=== PATIENT | male | born 1955 | race Two or more races ===

== ENCOUNTER 2018-11-28 09:59 | Inpatient (IN) | payer MEDICAID, OTHER ==
[~2018-11-28] VITALS: Ht 160 cm; Wt 78.0 kg
[2018-11-28] VITALS (20 sets, daily range): BP systolic 99–136; BP diastolic 55–93
[2018-11-28] MEDS ORDERED: SODIUM CHLORIDE 0.9% 1,000 ML IV ONE (10:23)
[2018-11-28 11:00] LABS: HEMATOCRIT. 45.2 % (42.0-52.0); HEMOGLOBIN. 14.4 g/dL (14.0-18.0); MEAN CORPUSCULAR HEMOGLOBIN 30.2 pg (28.0-32.0); MEAN PLATELET VOLUME 10.6 fl (7.4-10.4); PLATELET 387 x1000/uL (130-400); RED BLOOD CELL COUNT 4.76 mill/uL (4.7-6.1)
[2018-11-28 11:06] LABS: CHLORIDE 101 mEq/L (98-107)
[2018-11-28 11:10] LABS: ETHANOL BLOOD < 10 mg/dL
[2018-11-28 11:18] LABS: CANNABINOID URINE SCREEN NEGATIVE (NEGATIVE)
[2018-11-28 11:19] LABS: *AMPHETAMINES SCREEN URINE NEGATIVE (NEGATIVE)
[2018-11-28 11:20] LABS: *BENZODIAZEPINES SCREEN URINE NEGATIVE (NEGATIVE); METHADONE URINE SCREEN NEGATIVE (NEGATIVE)
[2018-11-28 11:21] LABS: *BARBITURATES SCREEN URINE NEGATIVE (NEGATIVE); OPIATES URINE SCREEN NEGATIVE (NEGATIVE)
[2018-11-28 11:22] LABS: PHENCYCLIDINE URINE SCREEN NEGATIVE (NEGATIVE)
[2018-11-28 11:24] LABS: *COCAINE SCREEN URINE NEGATIVE (NEGATIVE)
[2018-11-28] MEDS ORDERED: INSULIN REGULAR (HUMULIN R) 300UNITS/3ML SUBCUT ONE (11:30)
[2018-11-28 11:35] LABS: PLATELET ESTIMATE NORMAL
[2018-11-28] MEDS ORDERED: FUROSEMIDE 100MG/10ML VIAL IV STA (11:48)
[2018-11-28] MEDS ORDERED: SODIUM BICARBONATE 8.4% 1 MEQ/ML 50ML SYR IV ONE (12:00)
[2018-11-28] MEDS ORDERED: ALBUTEROL (0.083%) 2.5MG/3ML NEB HHN ONE (12:00)
[2018-11-28] MEDS ORDERED: INSULIN REGULAR (HUMULIN R) 300UNITS/3ML IV ONE (12:00)
[2018-11-28] MEDS ORDERED: IOHEXOL-350 100 ML BOTTLE ONE (12:20)
[2018-11-28] MEDS ORDERED: INSULIN REGULAR (DRIP) 100 UNITS in SODIUM CHLORIDE 0.9% 99 ML IV SCH (12:30)
[2018-11-28] MEDS ORDERED: LEVETIRACETAM 1000MG/100ML 100 ML IV ONE (12:45)
[2018-11-28 12:59] LABS: BG BASE EXCESS -12.9 mmol/L (-2.0-2.0); BG CARBOXYHEMOGLOBIN 0.3 % (0.5-1.5); BG DEOXYHEMOGLOBIN 2.6 % (0.0-5.0); BG FRACTION INSPIRED OXYGEN 21; BG HCO3 ACT 12.5 mmol/L (22.0-26.0); BG METHEMOGLOBIN 0.2 % (0.0-1.5); BG OXYGEN SATURATION 97.4 % (92.0-98.5); BG OXYHEMOGLOBIN 96.9 % (94.0-97.0); BG PCO2 28.3 mmHg (35.0-45.0); BG PH 7.263 (7.350-7.450); BG PO2 114.2 mmHg (75.0-100.0); BG SAMPLE SITE LEFT FEMORAL; BG TOTAL HEMOGLOBIN 13.9 g/dL (12.0-18.0); BG VENT MODE ROOM AIR
[2018-11-28] MEDS ORDERED: NICARDIPINE 100 MG in SODIUM CHLORIDE 0.9% 60 ML IV PRN (13:00)
[2018-11-28] MEDS: NICARDIPINE 100 MG in SODIUM CHLORIDE 0.9% 60 ML IV PRN ×2 (13:55→22:47)
[2018-11-28] MEDS ORDERED: ONDANSETRON HCL 4MG/2ML INJ IV PRN (15:00)
[2018-11-28] MEDS ORDERED: LEVETIRACETAM 500MG PREMIX 100 ML IV SCH (17:00)
[2018-11-28] MEDS ORDERED: SODIUM CHLORIDE 0.45% 1,000 ML IV SCH (17:00)
[2018-11-28 17:54] LABS: PHOSPHORUS 1.3 mg/dL (2.5-4.9)
[2018-11-28] MEDS ORDERED: DEXTROSE 50% WATER 50ML SYRINGE IV PRN ×2 (18:30)
[2018-11-28] MEDS ORDERED: INSULIN REGULAR (DRIP) 100 UNITS in SODIUM CHLORIDE 0.9% 100 ML IV SCH (19:00)
[2018-11-28 19:07] LABS: CLARITY URINE CLOUDY (CLEAR); COLOR URINE YELLOW (YELLOW); KETONES URINE TRACE (NEGATIVE); LEUKOCYTE ESTERASE URINE NEGATIVE (NEGATIVE); NITRITE URINE NEGATIVE (NEGATIVE); OCCULT BLOOD URINE 3+ (NEGATIVE); PROTEIN URINE 2+ (NEGATIVE); SPECIFIC GRAVITY URINE 1.061 (1.005-1.030); UROBILINOGEN URINE 0.2 E.U./dL (0.2-1.0)
[2018-11-28] MEDS: BLOOD SUGAR DIAGNOSTIC STRIP TEST SCH ×4 (20:16→23:23)
[2018-11-28] MEDS: FAMOTIDINE 20MG/2ML VIAL IV SCH (20:21)
[2018-11-28] MEDS: LEVETIRACETAM 500MG in SODIUM CHLORIDE 0.9% 100ML IV SCH (20:22)
[2018-11-28] MEDS ORDERED: POTASSIUM PHOS,M-BASIC-D-BASIC 15 MMOL in DEXT 5% WATER 245 ML IV NR (22:00)
[2018-11-29] VITALS (93 sets, daily range): BP systolic 82–157; BP diastolic 49–86
[2018-11-29] MEDS: BLOOD SUGAR DIAGNOSTIC STRIP TEST SCH ×11 (00:12→23:28)
[2018-11-29 05:42] LABS: HEMATOCRIT. 43.5 % (42.0-52.0); HEMOGLOBIN. 14.7 g/dL (14.0-18.0); MEAN CORPUSCULAR HEMOGLOBIN 29.5 pg (28.0-32.0); RED CELL DISTRIBUTION WIDTH 13.1 % (11.6-14.6)
[2018-11-29 05:51] LABS: PHOSPHORUS 1.1 mg/dL (2.5-4.9)
[2018-11-29] MEDS ORDERED: DEXTROSE 50% WATER 50ML SYRINGE IV PRN (08:00)
[2018-11-29] MEDS: NICARDIPINE 100 MG in SODIUM CHLORIDE 0.9% 60 ML IV PRN ×2 (08:34→23:29)
[2018-11-29] MEDS: DEXTROSE 5% WATER 1,000 ML IV SCH (08:39)
[2018-11-29 08:52] LABS: BG BASE EXCESS 3.3 mmol/L (-2.0-2.0); BG CARBOXYHEMOGLOBIN 0.4 % (0.5-1.5); BG DEOXYHEMOGLOBIN 4.9 % (0.0-5.0); BG HCO3 ACT 26.9 mmol/L (22.0-26.0); BG METHEMOGLOBIN 0.7 % (0.0-1.5); BG PCO2 37.4 mmHg (35.0-45.0); BG PH 7.474 (7.350-7.450); BG PO2 76.7 mmHg (75.0-100.0); BG SAMPLE SITE RIGHT BRACHIAL; BG TOTAL HEMOGLOBIN 15.1 g/dL (12.0-18.0); BG VENT MODE ROOM AIR
[2018-11-29] MEDS ORDERED: POTASSIUM PHOS,M-BASIC-D-BASIC 15 MMOL in DEXT 5% WATER 245 ML IV SCH (09:00)
[2018-11-29] MEDS ORDERED: HYDRALAZINE 20MG/ML VIAL IV PRN (09:00)
[2018-11-29] MEDS: LEVETIRACETAM 500MG in SODIUM CHLORIDE 0.9% 100ML IV SCH ×2 (09:42→20:21)
[2018-11-29] MEDS ORDERED: INSULIN GLARGINE UD 100 UNITS/ML SYR SUBCUT SCH ×2 (10:00→21:00)
[2018-11-29 10:05] LABS: MEAN PLATELET VOLUME 9.7 fl (7.4-10.4); PLATELET 369 x1000/uL (130-400); PLATELET ESTIMATE NORMAL
[2018-11-29] MEDS ORDERED: PIPERACILLIN/TAZ 3.375G PREMIX 50 ML IV SCH (11:15)
[2018-11-29] MEDS: INSULIN LISPRO 100 UNITS/ML SUBCUT SCH ×3 (12:07→23:36)
[2018-11-29] MEDS: PIPERACILLIN/TAZ 2.25G PREMIX 50 ML IV SCH ×3 (12:41→23:21)
[2018-11-29] MEDS ORDERED: VANCOMYCIN 1500MG in DEXTROSE 5% WATER 250ML IV SCH (13:30)
[2018-11-29 16:37] LABS: PHOSPHORUS 3.4 mg/dL (2.5-4.9)
[2018-11-29] MEDS ORDERED: INSULIN LISPRO 100 UNITS/ML SUBCUT NR ×2 (18:15→19:45)
[2018-11-29] MEDS ORDERED: INSULIN GLARGINE UD 100 UNITS/ML SYR SUBCUT NR (18:30)
[2018-11-29] MEDS: FAMOTIDINE 20MG/2ML VIAL IV SCH (20:20)
[2018-11-30] VITALS (93 sets, daily range): BP systolic 101–158; BP diastolic 38–92
[2018-11-30] MEDS: DEXTROSE 5% WATER 1,000 ML IV SCH ×2 (01:10→17:12)
[2018-11-30 06:09] LABS: HEMATOCRIT. 39.7 % (42.0-52.0); HEMOGLOBIN. 13.4 g/dL (14.0-18.0); MEAN CORPUSCULAR HEMOGLOBIN 29.9 pg (28.0-32.0); MEAN CORPUSCULAR VOLUME 88.5 fL (80.0-94.0); MEAN PLATELET VOLUME 9.8 fl (7.4-10.4); PLATELET 285 x1000/uL (130-400); RED BLOOD CELL COUNT 4.48 mill/uL (4.7-6.1); RED CELL DISTRIBUTION WIDTH 13.7 % (11.6-14.6)
[2018-11-30] MEDS: PIPERACILLIN/TAZ 2.25G PREMIX 50 ML IV SCH ×4 (06:22→23:23)
[2018-11-30 06:23] LABS: PHOSPHORUS 3.1 mg/dL (2.5-4.9)
[2018-11-30] MEDS: INSULIN LISPRO 100 UNITS/ML SUBCUT SCH ×6 (06:23→23:23)
[2018-11-30] MEDS: BLOOD SUGAR DIAGNOSTIC STRIP TEST SCH ×3 (06:24→17:14)
[2018-11-30] MEDS ORDERED: INSULIN LISPRO 100 UNITS/ML SUBCUT SCH (06:30)
[2018-11-30] MEDS: NICARDIPINE 100 MG in SODIUM CHLORIDE 0.9% 60 ML IV PRN (07:54)
[2018-11-30] MEDS: LEVETIRACETAM 500MG in SODIUM CHLORIDE 0.9% 100ML IV SCH ×2 (09:09→20:51)
[2018-11-30] MEDS ORDERED: INSULIN GLARGINE UD 100 UNITS/ML SYR SUBCUT SCH (10:00)
[2018-11-30 10:35] LABS: PLATELET ESTIMATE NORMAL
[2018-11-30] MEDS: INSULIN GLARGINE UD 100 UNITS/ML SYR SUBCUT SCH ×2 (11:46→21:01)
[2018-11-30] MEDS ORDERED: IPRATROPIUM/ALBUTEROL 0.5-3(2.5)MG/3ML NEB HHN PRN (15:00)
[2018-11-30] MEDS ORDERED: CLONIDINE 0.1MG TABLET PO PRN (16:15)
[2018-11-30] MEDS: METOPROLOL TARTRATE 50MG TABLET PO SCH (20:50)
[2018-11-30] MEDS: FAMOTIDINE 20MG/2ML VIAL IV SCH (20:50)
[2018-12-01] VITALS (80 sets, daily range): BP systolic 100–155; BP diastolic 51–110
[2018-12-01] MEDS: INSULIN LISPRO 100 UNITS/ML SUBCUT SCH ×6 (05:55→18:50)
[2018-12-01] MEDS: PIPERACILLIN/TAZ 2.25G PREMIX 50 ML IV SCH ×3 (05:57→18:48)
[2018-12-01] MEDS: BLOOD SUGAR DIAGNOSTIC STRIP TEST SCH ×4 (06:00→18:48)
[2018-12-01 06:09] LABS: HEMATOCRIT. 40.8 % (42.0-52.0); HEMOGLOBIN. 13.7 g/dL (14.0-18.0); MEAN CORPUSCULAR HEMOGLOBIN 29.7 pg (28.0-32.0); MEAN CORPUSCULAR VOLUME 88.2 fL (80.0-94.0); MEAN PLATELET VOLUME 9.6 fl (7.4-10.4); PLATELET 212 x1000/uL (130-400); RED BLOOD CELL COUNT 4.63 mill/uL (4.7-6.1); RED CELL DISTRIBUTION WIDTH 13.2 % (11.6-14.6)
[2018-12-01 06:18] LABS: PHOSPHORUS 4.6 mg/dL (2.5-4.9)
[2018-12-01] MEDS: METOPROLOL TARTRATE 50MG TABLET PO SCH ×2 (08:28→21:29)
[2018-12-01] MEDS: LEVETIRACETAM 500MG in SODIUM CHLORIDE 0.9% 100ML IV SCH ×2 (08:28→21:30)
[2018-12-01] MEDS: AMLODIPINE 10MG TABLET PO SCH (08:29)
[2018-12-01] MEDS ORDERED: VANCOMYCIN 1250MG in DEXTROSE 5% WATER 250ML IV NR (09:30)
[2018-12-01] MEDS: INSULIN GLARGINE UD 100 UNITS/ML SYR SUBCUT SCH ×2 (10:30→21:30)
[2018-12-01 11:23] LABS: PLATELET ESTIMATE NORMAL
[2018-12-01] MEDS: DEXTROSE 5% WATER 1,000 ML IV SCH (12:29)
[2018-12-01] MEDS: FAMOTIDINE 20MG/2ML VIAL IV SCH (21:29)
[2018-12-02] VITALS (27 sets, daily range): BP systolic 125–158; BP diastolic 54–77
[2018-12-02] MEDS: BLOOD SUGAR DIAGNOSTIC STRIP TEST SCH ×4 (00:17→18:39)
[2018-12-02] MEDS: PIPERACILLIN/TAZ 2.25G PREMIX 50 ML IV SCH ×5 (00:21→23:44)
[2018-12-02] MEDS: INSULIN LISPRO 100 UNITS/ML SUBCUT SCH ×7 (00:21→18:00)
[2018-12-02] MEDS: DEXTROSE 5% WATER 1,000 ML IV SCH (04:15)
[2018-12-02 05:30] LABS: HEMATOCRIT. 40.3 % (42.0-52.0); HEMOGLOBIN. 13.6 g/dL (14.0-18.0); MEAN CORPUSCULAR HEMOGLOBIN 29.9 pg (28.0-32.0); MEAN CORPUSCULAR VOLUME 88.8 fL (80.0-94.0); MEAN PLATELET VOLUME 9.9 fl (7.4-10.4); PLATELET 185 x1000/uL (130-400); RED BLOOD CELL COUNT 4.54 mill/uL (4.7-6.1)
[2018-12-02] MEDS: LEVETIRACETAM 500MG in SODIUM CHLORIDE 0.9% 100ML IV SCH ×2 (08:45→21:46)
[2018-12-02] MEDS: AMLODIPINE 10MG TABLET PO SCH (08:46)
[2018-12-02] MEDS: METOPROLOL TARTRATE 50MG TABLET PO SCH ×2 (08:46→21:15)
[2018-12-02] MEDS: INSULIN GLARGINE UD 100 UNITS/ML SYR SUBCUT SCH ×2 (11:21→22:00)
[2018-12-02 11:23] LABS: PLATELET ESTIMATE NORMAL
[2018-12-02] MEDS ORDERED: VANCOMYCIN 1250MG in DEXTROSE 5% WATER 250ML IV SCH (21:00)
[2018-12-02] MEDS: FAMOTIDINE 20MG/2ML VIAL IV SCH (21:14)
[2018-12-03] VITALS (12 sets, daily range): BP systolic 120–157; BP diastolic 56–108
[2018-12-03] MEDS: BLOOD SUGAR DIAGNOSTIC STRIP TEST SCH ×4 (00:14→17:35)
[2018-12-03] MEDS: DEXTROSE 5% WATER 1,000 ML IV SCH (03:03)
[2018-12-03] MEDS: PIPERACILLIN/TAZ 2.25G PREMIX 50 ML IV SCH ×3 (05:14→17:35)
[2018-12-03] MEDS: INSULIN LISPRO 100 UNITS/ML SUBCUT SCH ×5 (05:29→18:35)
[2018-12-03 05:56] LABS: BASOPHILS % 0.2 % (0.0-2.0); EOSINOPHILS % 0.6 % (0.0-5.0); HEMATOCRIT. 38.7 % (42.0-52.0); HEMOGLOBIN. 13.4 g/dL (14.0-18.0); LYMPHOCYTES % 7.5 % (20.0-50.0); MEAN CORPUSCULAR HEMOGLOBIN 30.4 pg (28.0-32.0); MEAN CORPUSCULAR VOLUME 87.9 fL (80.0-94.0); MEAN PLATELET VOLUME 9.8 fl (7.4-10.4); MONOCYTES % 6.3 % (2.0-8.0); NEUTROPHILS % 85.4 % (40.0-76.0); PLATELET 207 x1000/uL (130-400); RED CELL DISTRIBUTION WIDTH 13.4 % (11.6-14.6)
[2018-12-03] MEDS ORDERED: POTASSIUM CHLORIDE 20MEQ/PACKET PO NR (07:00)
[2018-12-03] MEDS: LEVETIRACETAM 500MG in SODIUM CHLORIDE 0.9% 100ML IV SCH ×2 (08:12→22:18)
[2018-12-03] MEDS: AMLODIPINE 10MG TABLET PO SCH (08:13)
[2018-12-03] MEDS: METOPROLOL TARTRATE 50MG TABLET PO SCH ×2 (08:13→22:23)
[2018-12-03] MEDS ORDERED: VANCOMYCIN 1500MG in DEXTROSE 5% WATER 250ML IV SCH (21:00)
[2018-12-03] MEDS: FAMOTIDINE 20MG/2ML VIAL IV SCH (22:18)
[2018-12-03] MEDS: INSULIN GLARGINE UD 100 UNITS/ML SYR SUBCUT SCH (22:24)
[2018-12-04] VITALS: BP 157/75
[2018-12-04] MEDS: PIPERACILLIN/TAZ 2.25G PREMIX 50 ML IV SCH ×3 (00:57→12:08)
[2018-12-04 04:00] VITALS: BP 131/62
[2018-12-04] MEDS: BLOOD SUGAR DIAGNOSTIC STRIP TEST SCH ×3 (06:56→12:07)
[2018-12-04 07:04] LABS: BASOPHILS % 0.3 % (0.0-2.0); EOSINOPHILS % 0.7 % (0.0-5.0); HEMATOCRIT. 38.2 % (42.0-52.0); HEMOGLOBIN. 13.1 g/dL (14.0-18.0); LYMPHOCYTES % 8.3 % (20.0-50.0); MEAN CORPUSCULAR HEMOGLOBIN 30.2 pg (28.0-32.0); MEAN CORPUSCULAR VOLUME 88.2 fL (80.0-94.0); MEAN PLATELET VOLUME 10.1 fl (7.4-10.4); MONOCYTES % 8.8 % (2.0-8.0); NEUTROPHILS % 81.9 % (40.0-76.0); PLATELET 236 x1000/uL (130-400); RED BLOOD CELL COUNT 4.34 mill/uL (4.7-6.1); RED CELL DISTRIBUTION WIDTH 12.7 % (11.6-14.6)
[2018-12-04] MEDS: INSULIN LISPRO 100 UNITS/ML SUBCUT SCH ×3 (07:04→12:23)
[2018-12-04 07:29] LABS: PHOSPHORUS 3.4 mg/dL (2.5-4.9)
[2018-12-04 08:00] VITALS: BP 123/48
[2018-12-04] MEDS: LEVETIRACETAM 500MG in SODIUM CHLORIDE 0.9% 100ML IV SCH (09:29)
[2018-12-04] MEDS: METOPROLOL TARTRATE 50MG TABLET PO SCH (09:30)
[2018-12-04] MEDS: AMLODIPINE 10MG TABLET PO SCH (09:30)
[2018-12-04] MEDS: INSULIN GLARGINE UD 100 UNITS/ML SYR SUBCUT SCH (09:49)
[2018-12-04 12:00] VITALS: BP 138/61
== END 2018-12-04 15:42 | DRG 720 ==
LOC: ER 09:59 → MICUSO 12:36 → ENRESERV 14:11 → 5EST 12-02 17:11 → 6EST 12-03 18:40
PROVIDERS: ADMIT Internal Medicine; ATTEND Internal Medicine
DX: A41.9 Sepsis, unspecified organism (principal); J96.00 Acute respiratory failure, unspecified whether with hypoxia or hypercapnia; I60.9 Nontraumatic subarachnoid hemorrhage, unspecified; N17.0 Acute kidney failure with tubular necrosis; E11.10 Type 2 diabetes mellitus with ketoacidosis without coma; G93.49 Other encephalopathy; E87.1 Hypo-osmolality and hyponatremia; E86.0 Dehydration; E87.0 Hyperosmolality and hypernatremia; E83.39 Other disorders of phosphorus metabolism; E87.5 Hyperkalemia; I12.9 Hypertensive chronic kidney disease with stage 1 through stage 4 chronic kidney disease, or unspecified chronic kidney disease; E11.22 Type 2 diabetes mellitus with diabetic chronic kidney disease; N18.9 Chronic kidney disease, unspecified; E11.42 Type 2 diabetes mellitus with diabetic polyneuropathy; E11.621 Type 2 diabetes mellitus with foot ulcer; L97.519 Non-pressure chronic ulcer of other part of right foot with unspecified severity; Z79.4 Long term (current) use of insulin; Z79.899 Other long term (current) drug therapy
CPT/HCPCS: 36415; 36600; 70496; 71045; 80048; 80202; 80305; 80320; 82375; 82805; 82962; 83036; 83735; 84100; 84145; 84484; 92610; 93005; 93970; 96374; 97163; 97167; 97530; 97535; 99285; A6261; J0360; J1815; J1940; J1953; J2543; J3370; J3490; J7030; J7050; J7060; J7070; Q9967; G0480